=== PATIENT | male | born 1995 | race African-American/Black ===

== ENCOUNTER 2020-09-14 06:24 | Emergency (ER) | payer SELFPAY ==
[~2020-09-14 06:24] MED LIST: NAPROXEN500 MG PO
== END 2020-09-14 08:02 | disposition home or self-care (01) ==
LOC: FER 06:24
DX: R06.02 Shortness of breath (principal); R19.7 Diarrhea, unspecified; R11.0 Nausea; Z20.822 Contact with and (suspected) exposure to COVID-19; F17.210 Nicotine dependence, cigarettes, uncomplicated; Z88.8 Allergy status to other drugs, medicaments and biological substances
CPT/HCPCS: 99284; J1100; U0002

== ENCOUNTER 2020-10-21 19:01 | Emergency (ER) | payer SELFPAY ==
[2020-10-21] MEDS ORDERED: MOTRIN600 MG PO (20:10)
== END 2020-10-21 20:20 | disposition home or self-care (01) ==
LOC: FER 19:01
DX: R51.9 Headache, unspecified (principal); Z88.6 Allergy status to analgesic agent
CPT/HCPCS: 99283

== ENCOUNTER 2021-01-24 09:27 | Emergency (ER) | payer SELFPAY ==
[~2021-01-24 09:27] MED LIST changes: +MOTRIN600 MG PO
== END 2021-01-24 10:23 | disposition home or self-care (01) ==
LOC: FER 09:27
DX: J06.9 Acute upper respiratory infection, unspecified (principal); F17.210 Nicotine dependence, cigarettes, uncomplicated; Z88.8 Allergy status to other drugs, medicaments and biological substances; Z20.822 Contact with and (suspected) exposure to COVID-19
CPT/HCPCS: 71045; U0002

== ENCOUNTER 2021-12-04 17:40 | Emergency (ER) | payer OTHER ==
[2021-12-04] MEDS ORDERED: NAPROXEN500 MG PO (20:31)
[2021-12-04] MEDS ORDERED: ROBAXIN750 MG PO (20:31)
== END 2021-12-04 20:29 | disposition home or self-care (01) ==
LOC: FER 17:40
DX: S06.0X1A Concussion with loss of consciousness of 30 minutes or less, initial encounter (principal); S16.1XXA Strain of muscle, fascia and tendon at neck level, initial encounter; Z28.310 Unvaccinated for COVID-19; V49.50XA Passenger injured in collision with unspecified motor vehicles in traffic accident, initial encounter
CPT/HCPCS: 70450; 72125